=== PATIENT | female | born 1995 | race American Indian/Alaskan Native ===

== ENCOUNTER 2022-04-10 19:48 | Emergency (ER) | payer SELFPAY ==
[2022-04-10 21:20] VITALS: BP 121/64
[2022-04-10] MEDS ORDERED: ONDANSETRON 4 MG ODT TAB PO ONE (22:23)
== END 2022-04-11 15:28 | disposition left against medical advice (07) ==
LOC: ED 19:48
DX: R10.9 Unspecified abdominal pain (principal); R11.10 Vomiting, unspecified; Z53.21 Procedure and treatment not carried out due to patient leaving prior to being seen by health care provider